=== PATIENT | male | born 1970 ===

== ENCOUNTER 2021-03-26 16:18 | Outpatient (CLI) | payer OTHER ==
[2021-03-27 02:13] LABS: SARS-CoV-2 PCR by NAA Not Detected (NotDetected)
== END 2021-03-26 16:19 | disposition home or self-care (01) ==
LOC: CSHLAB 16:18
PROVIDERS: ATTEND Orthopaedic Surgery Sports Medicine
DX: Z01.810 Encounter for preprocedural cardiovascular examination (principal); Z01.812 Encounter for preprocedural laboratory examination; S83.231A Complex tear of medial meniscus, current injury, right knee, initial encounter
CPT/HCPCS: 87635; 93005; 93010; U0003; U0005